=== PATIENT | male | born 1990 | race Caucasian/White ===

== ENCOUNTER → 2017-01-15 | Outpatient (CLI) | payer OTHER ==
--- NOTE | 2017-01-15 15:53 | DI ---
Indication: [email or web address]: DX TESTING PROCEDURE: KNEE LEFT 2 VIEW: Encounter: Initial Comparison: None Findings: There is no acute fracture, dislocation or malalignment identified. No significant joint space narrowing. No joint effusion. Impression: No acute osseous abnormality. .
--- NOTE | 2017-01-15 15:54 | DI ---
Indication: [email or web address]: DX TESTING PROCEDURE: THORACIC SPINE 2 VIEW: Encounter: Initial Comparison: None Findings: Alignment of the thoracic spine is within normal limits. No acute fracture or subluxation seen. The vertebral body heights and disk spaces are normal. No significant degenerative change appreciated. Impression: No acute osseous abnormality. .
--- NOTE | 2017-01-15 15:55 | DI ---
Indication: [email or web address]: DX TESTING PROCEDURE: LUMBAR SPINE 2-3 VIEWS: Encounter: Initial Comparison: None Findings: Alignment of the lumbar spine is within normal limits. Posterior decompression noted at L4 and L5 with prior laminectomies. Vertebral body heights are maintained. Mild disk space narrowing at L4-L5. Mild degenerative facet disease at L5-S1. Impression: Degenerative disk and facet disease in the lower lumbar spine. .
--- NOTE | 2017-01-15 15:56 | DI ---
Indication: [email or web address]: DX TESTING PROCEDURE: SHOULDER LEFT 2-3 VIEWS: Encounter: Initial Comparison: None Findings: There is no acute fracture, dislocation or malalignment identified. Acromioclavicular and glenohumeral joint spaces are maintained. Impression: No acute osseous abnormality. .
--- NOTE | 2017-01-15 15:56 | DI ---
Indication: [email or web address]: DX TESTING PROCEDURE: KNEE RIGHT 2 VIEW: Encounter: Initial Comparison: None Findings: There is no acute fracture, dislocation or malalignment identified. No significant joint space narrowing or degenerative change. Impression: No acute osseous abnormality. .
--- NOTE | 2017-01-15 15:59 | DI ---
Indication: [email or web address]: DX TESTING PROCEDURE: SHOULDER RIGHT 3 VIEWS: Encounter: Initial Comparison: None Findings: There is no acute fracture, dislocation or malalignment identified. Acromioclavicular joint space is widened at 9 mm. Old healed right clavicular fracture. The glenohumeral joint space is maintained. Impression: No acute fracture. Findings of age indeterminate grade 2 AC joint separation, possibly old due to the adjacent healed fracture defect. .
== END ==
LOC: IMA 14:39
DX: Z02.89 Encounter for other administrative examinations (principal)